=== PATIENT | male | born 1940 | race Caucasian/White ===

== ENCOUNTER 2017-07-19 18:25 | Emergency (ER) | payer MEDICARE, OTHER ==
[~2017-07-19] VITALS: Ht 185.4 cm; Wt 80.6 kg
[~2017-07-19 18:25] MED LIST: DIOVAN80 MG PO
[2017-07-19] MEDS ORDERED: PERCOCET 5/325M1 TAB PO (23:43)
[2017-07-19] MEDS ORDERED: KEFLEX500 M1 PO (23:43)
[2017-07-19 23:55] VITALS: BP 157/74
== END 2017-07-19 23:55 | disposition home or self-care (01) ==
LOC: ED 18:25
DX: S02.2XXA Fracture of nasal bones, initial encounter for closed fracture (principal); S01.21XA Laceration without foreign body of nose, initial encounter; S61.012A Laceration without foreign body of left thumb without damage to nail, initial encounter; S51.012A Laceration without foreign body of left elbow, initial encounter; W11.XXXA Fall on and from ladder, initial encounter; Y93.89 Activity, other specified; Y92.89 Other specified places as the place of occurrence of the external cause

== ENCOUNTER 2023-02-06 22:30 | Emergency (ER) | payer MEDICARE ==
[~2023-02-06] VITALS: Ht 185.4 cm; Wt 86.0 kg
[~2023-02-06 22:30] MED LIST changes: +KEFLEX500 M1 PO; +PERCOCET 5/325M1 TAB PO
[2023-02-06 22:46] VITALS: BP 136/65
[2023-02-06 23:00] VITALS: BP 139/69
[2023-02-06 23:05] LABS: BASO% 0.4 % (0-3); HEMATOCRIT 39.1 % (39.0-50.0); HEMOGLOBIN 12.8 g/dl (14.0-18.0); IMMATURE GRANULOCYTES 0.1 % (0.0-5.0); LYMPH% 26.6 % (15-41); MEAN CELL VOLUME 93.1 fL CALC (80.0-100.0); MEAN CORPUSCULAR HGB 30.5 pG CALC (26.0-32.0); MEAN CORPUSCULAR HGB CONC 32.7 g/dL CAL (32.0-36.0); NEUT# 4.63 thou/uL (1.82-7.42); NEUT% 62.9 % (42-76); RED BLOOD COUNT 4.2 mill/uL (4.70-6.10); RED CELL DISTRI WIDTH 13.1 % (11.5-15.5)
[2023-02-06 23:16] VITALS: BP 136/82
[2023-02-06 23:28] LABS: ALKALINE PHOSPHATASE 80 u/l (38-126); ANION GAP 11 (6-22 (CALC)); BILIRUBIN, TOTAL 0.5 mg/dL (0.2-1.3); BUN 17 mg/dL (8-23); BUN/CREATININE RATIO 17 (12-20 (CALC)); CARBON DIOXIDE 28 mmol/l (22-30); CHLORIDE 102 mmol/l (95-108); GFR FOR AFR.AMER. > 60 ML/MIN (>=60 (CALC)); GFR OTHER RACES > 60 ML/MIN (>=60 (CALC)); POTASSIUM 3.7 mmol/l (3.5-5.1); SGOT/AST 27 u/l (19-48); SODIUM 137 mmol/l (137-146)
[2023-02-06 23:30] VITALS: BP 135/72
[2023-02-06 23:57] VITALS: BP 135/72
== END 2023-02-07 00:12 | disposition home or self-care (01) ==
LOC: ED 22:30
PROVIDERS: Emergency Medicine
DX: U07.1 COVID-19 (principal); R50.9 Fever, unspecified; R05.9 Cough, unspecified; R06.02 Shortness of breath; I10 Essential (primary) hypertension

== ENCOUNTER 2024-09-14 12:18 | Emergency (ER) | payer MEDICARE ==
[~2024-09-14] VITALS: Ht 185.4 cm; Wt 85.0 kg
[2024-09-14] VITALS (7 sets, daily range): BP systolic 109–131; BP diastolic 55–69
[2024-09-14] MEDS ORDERED: METHOCARBAMOL500 MG PO (14:24)
[2024-09-14] MEDS ORDERED: NAPROXEN500 MG PO (14:24)
== END 2024-09-14 14:47 | disposition home or self-care (01) ==
LOC: ED 12:18
DX: S06.0X0A Concussion without loss of consciousness, initial encounter (principal); S46.912A Strain of unspecified muscle, fascia and tendon at shoulder and upper arm level, left arm, initial encounter; I10 Essential (primary) hypertension; V80.010A Animal-rider injured by fall from or being thrown from horse in noncollision accident, initial encounter; Y93.52 Activity, horseback riding; Y92.009 Unspecified place in unspecified non-institutional (private) residence as the place of occurrence of the external cause; Z72.0 Tobacco use